=== PATIENT | male | born 1980 | race Two or more races ===

== ENCOUNTER 2018-08-05 15:49 | Emergency (ER) | payer MEDICAID ==
[~2018-08-05] VITALS: Ht 175.3 cm; Wt 79.4 kg
[2018-08-05] MEDS ORDERED: HYDROCODONE/APAP 5-325MG TABLET PO ONE (16:15)
[2018-08-05] MEDS ORDERED: HYDROCODONE/APAP 5-325MG TABLET ONE (16:17)
--- NOTE | 2018-08-05 16:23 | NUR ---
Patient discharged to home in stable conditon. Written and verbal after care instructions given. Patient verbalizes understanding of instructions. Pt spoke with his via telephone and stated she will come pick him up from the ER. Pt ambulatory to ER waiting room.
== END 2018-08-05 16:24 | disposition home or self-care (01) ==
LOC: ER 15:51
DX: M54.5 Low back pain (principal); M25.561 Pain in right knee
CPT/HCPCS: 72100; A4663